=== PATIENT | female | born 1985 | race Caucasian/White ===

== ENCOUNTER 2016-11-28 18:05 | Emergency (ER) | payer OTHER ==
[2016-11-28 18:55] LABS: BASOPHILS 0.4 % (0.0-2.0); EOSINOPHILS 1.6 % (0.0-6.0); EOSINOPHILS# 0.2 X 10^3uL (0.0-0.4); LYMPHOCYTES# 2.3 X 10^3uL (0.8-3.8); MEAN PLATELET VOLUME 8.4 fL (7.4-10.4)
[2016-11-28] MEDS ORDERED: CLINDAMYCIN/D5W 50 ML IV ONE (18:57)
[2016-11-28 18:58] LABS: HEMATOCRIT 43.1 % (36.0-48.0); HEMOGLOBIN 14.8 g/dL (12.0-16.0); LYMPHOCYTES 23.6 % (20.0-40.0); MEAN CELL VOLUME 87.2 fL (80.0-100.0); MEAN CORPUS. HGB CONCENTRATION 34.3 g/dL (32.0-36.0); MEAN CORPUSCULAR HEMOGLOBIN 29.9 pg (29.0-35.0); MONOCYTES 6.2 % (2.0-10.0); MONOCYTES# 0.6 X 10^3uL (0.2-1.0); NEUTROPHILS 68.2 % (54.0-75.0); NEUTROPHILS# 6.8 X 10^3uL (2.6-6.7); RED BLOOD COUNT 4.95 X 10^6uL (4.20-6.10); RED CELL DISTRIBUTION WIDTH 13.5 % (11.5-14.5); WHITE BLOOD COUNT 9.9 X 10^3uL (3.9-10.7)
[2016-11-28] MEDS ORDERED: LEVOFLOXACIN/D5W 150 ML IV ONE (19:08)
[2016-11-28 19:13] LABS: C-REACTIVE PROTEIN 33.4 mg/L (<10.0)
[2016-11-28] MEDS ORDERED: BUPIVACAINE HCL/PF 0.5% 30 ML VIAL ONE (19:33)
[2016-11-28] MEDS ORDERED: LEVOFLOXACIN 250 MG TABLET ONE (19:33)
[2016-11-28] MEDS ORDERED: CLINDAMYCIN HCL 150 MG CAPSULE PO ONE (20:24)
--- NOTE | 2016-11-28 20:29 | ER PHYSICIAN DOCUMENTATION ---
Physician Documentation [facility] Name:Yolis Queen Age:30 yrs Sex:Female :1985 Arrival Date:11/28/2016 Time:18:05 Bed2 Private MD: Zac Rodríguez Disposition: 11/28 21:00 Chart complete. tl1 Disposition: 11/28/16 19:01 Discharged to Home/Self Care. Impression: Cellulitis of Hand. - Condition is Fair. - Discharge Instructions: CELLULITIS. - Prescriptions for Clindamycin HCl 150 mg Oral - take 3 capsule by ORAL route every 8 hours for 10 days; 90 capsule. Levaquin 750 mg Oral Tablet - take 1 tablet by ORAL route once daily for 10 days; 10 tablet. Ducor 5- 325 mg Oral Tablet - take 1 tablet by ORAL route every 6 hours As needed; 6 tablet. - Medical Reconciliation form form. - Follow up: Emergency Department; When: Tomorrow; Reason: Recheck today's complaints. - Problem is new. - Symptoms are unchanged. HPI: 18:19 This 30 yrs old Female presents to ER with complaints of Dog Bite. tl1 18:19 Onset: The symptom(s)/episode began/occurred suddenly, 3 day(s) ago. No care since tl1 then. Today she has noted progressive pain , swelling and redness of her left hand. Tetanus status is not up to date.. Historical: - Allergies: PENICILLINS; - Home Meds: 1. Vitamin Oral - PMHx: None; - PSHx: None; - Tetanus: unknown. - Ebola Screening: : Patient denies exposure to infectious person. Patient denies travel to an Ebola-affected area in the 21 days before illness onset. . - Immunization history: tetanus not UTD. - Social history: Smoking status: Patient uses tobacco products, current every day smoker. Patient uses alcohol on a daily basis. marijuana. ROS: 11/22 21:00 Skin: Positive for erythema, swelling. tl1 All other systems are negative. Exam: 21:00 Constitutional: This is a well developed, well nourished patient who is awake, alert, tl1 and in no acute distress. 21:00 Head/Face: Normocephalic, atraumatic. tl1 21:00 Cardiovascular: Rate: normal, Heart sounds: normal. 21:00 Respiratory: Respirations: normal. 21:00 Skin: cellulitis, that is moderate, on the dorsum of left hand and Left first web space, injury, bite(s), deep, linear, of the Left first web space. Vital Signs: 11/28 18:25 BP 134 / 60; Pulse 77; Pulse Ox 97% on R/A; Pain 2/10; st 20:28 BP 130 / 64; Pulse 74; Resp 12; Pulse Ox 97% on R/A; Pain 0/10; lb Laceration: 11/22 21:00 Wound Repair of 1cm ( 0.4in ) subcutaneous laceration to Left first web space and tl1 dorsum of left hand. Distal neuro/vascular/tendon intact. Anesthesia: Wound infiltrated with 3 mls of 0.5% marcaine. Wound prep: Simple cleansing with betadine, Wound irrigation with saline, Wound explored moderately. Skin closed with 1-0 Ethilon using Not closed: it was opened up and had begun to close and form an abscess. A small amonut of pus was expressed and irrigated out. This was left open and not packed.. Dressed with Bacitracin, 4x4's. Patient tolerated well. MDM: 21:00 Rabies Status: Rabies immunization is not indicated Rabies immune globulin is indicated tl1 for this patient. Data reviewed: vital signs, nurses notes, and as a result, I will discharge patient. Counseling: I had a detailed discussion with the patient and/or guardian regarding: the historical points, exam findings, and any diagnostic results supporting the discharge/admit diagnosis, radiology results, the need for outpatient follow up, for a referral to a specialist, a orthopedic surgeon, to return to the emergency department if symptoms worsen or persist or if there are any questions or concerns that arise at home. Response to treatment: the patient's symptoms have mildly improved after treatment, and as a result, I will discharge patient. Physician consultation: Dl Austin MD was called at 19:00, was contacted at 19:00, regarding patient's condition, outpatient follow-up, and will see patient in office, in 2-3 days. 11/28 19:01 Patient medically screened. tl1 11/28 18:59 Order name: CBC AUTO DIF, IVANNA/GLEN IF IND; Complete Time: 09:40 EDMS 11/30 09:38 Interpretation: WHITE BLOOD COUNT 9.9; HEMOGLOBIN 14.8; HEMATOCRIT 43.1; PLATELET COUNT tl1 313. 11/28 19:14 Order name: C-REACTIVE PROTEIN; Complete Time: 09:40 EDMS 11/30 09:39 Interpretation: Abnormal: C-REACTIVE PROTEIN 33.4. tl1 11/28 19:19 Order name: ERYTHROCYTE SEDIMENTATION RATE; Complete Time: 09:40 EDMS 11/30 09:40 Interpretation: Normal: ERYTHROCYTE SEDIMENTATION RATE 8. tl1 Dispensed Medications: 18:35 CANCELLED (Physician Discretion): Unasyn 3 grams IVPB once tl1 18:53 Drug: Clindamycin 900 mg; Route: IVPB; Site: right antecubital; lb 19:25 Follow up: IV Status: Completed infusion; IV Intake: 100ml lb 18:55 CANCELLED (Physician Discretion): Doxycycline 200 mg IVPB once tl1 19:25 Drug: Marcaine (0.5 %) 750 mg; Route: Infiltration; lb 19:37 Follow up: Response: No adverse reaction lb 19:25 Drug: Levaquin 750 mg; Route: PO; lb 20:29 Follow up: Response: No adverse reaction lb 20:26 Drug: Clindamycin 300 mg; Route: PO; lb 20:27 Follow up: Response: Pharmacy closed - take home med pack lb 20:26 Drug: HYDROcodone-acetaminophen (5mg/325 mg) 1-2 tabs 1 tabs; Route: PO; lb 20:27 Follow up: Response: Pharmacy closed - take home med pack lb Signatures: Dasha Haro RN RN st Leigh, Tom, MD MD tl1 Kira Mullins lb
--- NOTE | 2016-11-28 20:29 | ER NURSING DOCUMENTATION ---
Nurse's Notes [facility] Name:Yolis Queen Age:30 yrs Sex:Female :1985 Arrival Date:11/28/2016 Time:18:05 Bed2 Private MD: Diagnosis:Cellulitis of Hand Presentation: 11/28 18:10 Acuity: DAMARI 4 st 18:17 Presenting complaint: Patient states: pt states that her dog got startled three days st ago and turned his head fast catching his tooth on the pt left hand. today that hand is swollen and the cut is weeping clear fluid. Transition of care: Home. 18:17 Method Of Arrival: Private Vehicle st Triage Assessment: 18:24 Bite description: bite sustained to left hand is about 1 inch lac to the left hand. st hand is swollen. by a dog, animal information: vaccination(s) is current. General: Appears in no apparent distress, Behavior is cooperative. Pain: Complains of pain in left hand Pain currently is 2 out of 10 on a pain scale. Musculoskeletal: Swelling present in left hand. Historical: - Allergies: PENICILLINS; - Home Meds: 1. Vitamin Oral - PMHx: None; - PSHx: None; - Tetanus: unknown. - Ebola Screening: : Patient denies exposure to infectious person. Patient denies travel to an Ebola-affected area in the 21 days before illness onset. . - Immunization history: tetanus not UTD. - Social history: Smoking status: Patient uses tobacco products, current every day smoker. Patient uses alcohol on a daily basis. marijuana. Screenin:25 Infectious Disease Risk None. Abuse screen: Denies threats or abuse. Denies injuries st from another. pt feels safe at home. Nutritional screening: No deficits noted. Vital Signs: 18:25 BP 134 / 60; Pulse 77; Pulse Ox 97% on R/A; Pain 2/10; st 20:28 BP 130 / 64; Pulse 74; Resp 12; Pulse Ox 97% on R/A; Pain 0/10; lb ED Course: 18:07 Patient arrived in ED. ama 18:10 Two, Summer, RN is Primary Nurse. st 18:[address] 18:19 Zac Geiger MD is Attending Physician. tl1 18:26 Valuables Remains with patient Patient has correct armband on for positive st identification. Bed in low position. 18:36 Inserted peripheral IV: 20 gauge in right antecubital area and blood collected. st 18:38 Port Xray Completed. pm1 18:39 Removed ring from left ring finger. st 20:27 Wound care to puncture located on left hand was dressed with 4X4s, Kerlix. lb Administered Medications: 18:35 CANCELLED (Physician Discretion): Unasyn 3 grams IVPB once tl1 18:53 Drug: Clindamycin 900 mg; Route: IVPB; Site: right antecubital; lb 19:25 Follow up: IV Status: Completed infusion; IV Intake: 100ml lb 18:55 CANCELLED (Physician Discretion): Doxycycline 200 mg IVPB once tl1 19:25 Drug: Marcaine (0.5 %) 750 mg; Route: Infiltration; lb 19:37 Follow up: Response: No adverse reaction lb 19:25 Drug: Levaquin 750 mg; Route: PO; lb 20:29 Follow up: Response: No adverse reaction lb 20:26 Drug: Clindamycin 300 mg; Route: PO; lb 20:27 Follow up: Response: Pharmacy closed - take home med pack lb 20:26 Drug: HYDROcodone-acetaminophen (5mg/325 mg) 1-2 tabs 1 tabs; Route: PO; lb 20:27 Follow up: Response: Pharmacy closed - take home med pack lb Intake: 19:25 IV: 100ml; Total: 100ml. lb Outcome: 19:01 Discharge ordered by . tl1 20:28 Discharged to home ambulatory. lb 20:28 Condition: stable 20:28 Discharge Assessment: Patient awake, alert and oriented x 3. No cognitive and/or functional deficits noted. Patient verbalized understanding of disposition instructions. 20:28 Instructed on discharge instructions, follow up and referral plans. no drinking with medication, no driving heavy equipment. 20:28 IV D/Paul 20:28 Patient left the ED. lb Signatures: Dasha Haro, Breanna Gibbs RN pm1 Mio Johnson, Zac Lerner MD MD tl1 Kira Mullins lb
[2016-11-28] MEDS ORDERED: HYDROcodone/APAP PREPAC 5/325 1 TAB TABLET PO ONE (20:34)
--- NOTE | 2016-12-01 17:14 | RADIOLOGY REPORT ---
Three views of the left hand demonstrate no displaced fracture, subluxation or bony destructive change. The visualized joints appear unremarkable. IMPRESSION: No displaced injury is identified. If clinically indicated, further evaluation and/or follow-up may be of benefit. HERNANDEZD
== END 2016-11-28 20:29 | disposition home or self-care (01) ==
LOC: ER 18:05
DX: T79.8XXA Other early complications of trauma, initial encounter (principal); S61.452S Open bite of left hand, sequela; L02.414 Cutaneous abscess of left upper limb; L03.114 Cellulitis of left upper limb; W54.0XXS Bitten by dog, sequela
CPT/HCPCS: 12041; 85025; 85651; 86140; 96365; 99284; J1956

== ENCOUNTER 2016-11-29 11:25 | Emergency (ER) | payer OTHER ==
--- NOTE | 2016-11-29 12:03 | ER NURSING DOCUMENTATION ---
Nurse's Notes [facility] Name:Yolis Queen Age:30 yrs Sex:Female :1985 Arrival Date:11/29/2016 Time:11:25 Bed1 Private MD: Diagnosis:Cellulitis of Hand Presentation: 11/29 11:30 Transition of care: patient was not received from another setting of care. 11:30 Acuity: DAMARI 5 11:30 Method Of Arrival: Walk In 11:30 Presenting complaint: Patient states: recheck of left hand dog bite, symptoms improved; nf seen in ER yesterday and received IV antibiotics and antibiotic prescription x2 which she has filled, will see DrGrant tomorrow morning. 11:36 Notified ED Physician of patient's arrival and CC Swapnil Lorenzana notified. nf Triage Assessment: 11:30 General: Appears comfortable, well nourished, well groomed, Behavior is pleasant. Pain: nf Denies pain. 11:30 Derm: right had swollen, skin warm and pink, redness resolved from the markings of nf previous visit, no streaking, no fevers, no blood or drainage from wound, taking antibiotics. Historical: - Allergies: PENICILLINS; - Home Meds: 1. Vitamin Oral - PMHx: NONE; Cellulitis of Hand (November 28, 2016); - PSHx: NONE; - Tetanus: < 10 years. - Ebola Screening: : No symptoms or risks identified at this time. . - Immunization history: Flu Vaccine unknown. - Social history: Smoking status: unknown if patient ever smoked tobacco. Screenin:30 Infectious Disease Risk None. Abuse screen: Denies threats or abuse. Nutritional nf screening: No deficits noted. Vital Signs: 11:30 Temp 97.8; Pain 0/10; nf ED Course: : Patient arrived in ED. arc 11:30 Lesley Laws RN is Primary Nurse. nf 11:30 Triage completed. nf 11:30 Bed in low position Call Light in Reach Patient bandage removed. Family accompanied nf patient. 11:30 Valuables Remains with patient. Door closed. Noise minimized. Lights dimmed. Moved to private room. Verbal reassurance given. Pillow given. 11:33 Zac Geiger MD is Attending Physician. tl1 11:45 Wound care located on left hand was dressed with Kerlix. nf 12:00 Dl Austin MD is Referral Physician. tl1 Administered Medications: No medications were administered Outcome: 11:50 Discharged to home ambulatory, with family. nf 11:50 Condition: good 11:50 Discharge instructions given to patient, family, Instructed on discharge instructions, follow up and referral plans. medication usage, Demonstrated understanding of instructions, Prescriptions given X 2 antibiotic prescriptions were given yesterday 11:50 Recheck visit only Wound recheck nf 12:00 Discharge ordered by . tl1 Signatures: Lesley Laws, ANAY RN Zac Watts MD MD tl1 Eun Degroot, Reg Reg arc
--- NOTE | 2016-11-29 12:03 | ER PHYSICIAN DOCUMENTATION ---
Physician Documentation [facility] Name:Yolis Queen Age:30 yrs Sex:Female :1985 Arrival Date:11/29/2016 Time:11:25 Bed1 Private MD: Zac Rodríguez Disposition: 11/30 22:22 Chart complete. tl1 Disposition: 11/29/16 12:00 Discharged to Home/Self Care. Impression: Cellulitis of Hand. - Condition is Good. - Discharge Instructions: CELLULITIS. - Medical Reconciliation form form. - Follow up: Dl Austin MD; When: Tomorrow; Reason: Recheck today's complaints. - Problem is new. - Symptoms have improved. HPI: 11/29 11:34 This 30 yrs old Female presents to ER via Walk In with complaints of Recheck tl1 of dog bite cellulitis after first visit here yesterday. 11:40 She is feeling much better, with decreased swelling and pain in her left hand, with tl1 increasing movement and flexibility. Redness is clearly receeding.. Historical: - Allergies: PENICILLINS; - Home Meds: 1. Vitamin Oral - PMHx: NONE; Cellulitis of Hand (November 28, 2016); - PSHx: NONE; - Tetanus: < 10 years. - Ebola Screening: : No symptoms or risks identified at this time. . - Immunization history: Flu Vaccine unknown. - Social history: Smoking status: unknown if patient ever smoked tobacco. ROS: 11:40 MS/extremity: Positive for swelling, tenderness. tl1 Exam: 11:40 Constitutional: This is a well developed, well nourished patient who is awake, alert, tl1 and in no acute distress. 11:40 MS/ Extremity: Pulses equal, no cyanosis. Neurovascular intact. Full, normal range tl1 of motion. 11:40 Musculoskeletal/extremity: Extremities: grossly normal except: noted in the dorsum of left hand and Left first web space: The swelling redness and tenderness are all markedly improved from yesterday.. 11:40 Skin: Exam negative for acute changes. Vital Signs: 11:30 Temp 97.8; Pain 0/10; nf MDM: 11:33 Patient medically screened. tl1 12:00 Data reviewed: vital signs, nurses notes, old medical records, and as a result, I will tl1 discharge patient. Counseling: I had a detailed discussion with the patient and/or guardian regarding: the historical points, exam findings, and any diagnostic results supporting the discharge/admit diagnosis, the need for outpatient follow up, a orthopedic surgeon, tomorrow, as previously arranged, to return to the emergency department if symptoms worsen or persist or if there are any questions or concerns that arise at home. Dispensed Medications: No medications were administered Signatures: Lesley Laws RN RN nf Leigh, Tom, MD MD tl1
== END 2016-11-29 12:03 | disposition home or self-care (01) ==
LOC: ER 11:25
DX: Z48.00 Encounter for change or removal of nonsurgical wound dressing (principal); L03.114 Cellulitis of left upper limb; S61.452S Open bite of left hand, sequela
CPT/HCPCS: 99281

== ENCOUNTER 2017-01-01 11:25 | Emergency (ER) | payer OTHER ==
[2017-01-01 12:26] LABS: RH TYPE POSITIVE
[2017-01-01 12:56] LABS: HCG, QUANTITATIVE 68065 mIU/mL
--- NOTE | 2017-01-01 14:35 | ER PHYSICIAN DOCUMENTATION ---
Physician Documentation [facility] Name:Yolis Queen Age:31 yrs Sex:Female :1985 Arrival Date:01/01/2017 Time:11:25 Bed3 Private MD: Jamal Maharaj Disposition: 01/01/17 13:48 Discharged to Home/Self Care. Impression: Threatened Miscarriage. - Condition is Good. - Discharge Instructions: MISCARRIAGE Threatened - , Threatened. - Medical Reconciliation form form. - Follow up: Dominguez Rodriguez MD; When: 2 - 3 days; Reason: Continuance of care. - Problem is new. - Symptoms are resolved. HPI: 01/01 13:46 This 31 yrs old Female presents to ER via Private Vehicle with complaints of sc Vaginal Bleeding, + Preg <12wks. 13:46 The patient presents to the emergency department with vaginal bleeding. The estimated sc gestational age is 8 weeks. course: Leakage of Fluid: none appreciated, Ultrasound: the patient has not had an ultrasound. Associated signs and symptoms: The patient has no apparent associated signs or symptoms. 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 Vitamin Oral - PMHx: NONE; Cellulitis of Hand (November 28, 2016); - PSHx: NONE; - Ebola Screening: : Patient negative for fever greater than or equal to 101.5 degrees Fahrenheit, and additional compatible Ebola Virus Disease symptoms. Patient denies exposure to infectious person. Patient denies travel to an Ebola-affected area in the 21 days before illness onset. No symptoms or risks identified at this time. . - Social history: Smoking status: Patient states former smoker of tobacco. Patient uses alcohol on a daily basis. marijuana. ROS: 13:47 Constitutional: Negative for fever, chills, and weight loss. sc Eyes: Negative for injury, pain, redness, and discharge. Cardiovascular: Negative for chest pain, palpitations, and edema. Respiratory: Negative for shortness of breath, cough, wheezing, and pleuritic chest pain. Abdomen/GI: Negative for abdominal pain, nausea, vomiting, diarrhea, and constipation. Back: Negative for injury and pain. Skin: Negative for injury, rash, and discoloration. 13:47 Neuro: Negative for headache, weakness, numbness, tingling, and seizure. sc 13:47 : Positive for vaginal bleeding. Exam: Constitutional: This is a well developed, well nourished patient who is awake, alert, and in no acute distress. Head/Face: Normocephalic, atraumatic. Eyes: Pupils equal round and reactive to light, extra-ocular motions intact. Lids and lashes normal. Conjunctiva and sclera are non-icteric and not injected. Cornea within normal limits. Periorbital areas with no swelling, redness, or edema. Cardiovascular: Regular rate and rhythm with a normal S1 and S2. No gallops, murmurs, or rubs. Normal PMI, no JVD. No pulse deficits. Respiratory: Lungs have equal breath sounds bilaterally, clear to auscultation and percussion. No rales, rhonchi or wheezes noted. No increased work of breathing, no retractions or nasal flaring. 13:47 Abdomen/GI: Soft, non-tender, with normal bowel sounds. No distension or tympany. No sc guarding or rebound. No evidence of tenderness throughout. 13:47 : CVA tenderness, is absent, Gravid exam: Vital Signs: 11:35 BP 115 / 76; Pulse 80; Resp 24; Temp 98.6; Pulse Ox 99% on R/A; Weight 58.97 kg; Height rs 5 ft. 6 in. (167.64 cm); Pain 0/10; 13:05 BP 111 / 58; Pulse 71; Resp 18; Temp 98.4; Pulse Ox 98% on R/A; Pain 0/10; rs 13:57 Pulse Ox 96% ; rs 14:00 BP 114 / 55 (auto/); Pulse 67; Resp 18; Pulse Ox 96% on R/A; Pain 0/10; rs 11:35 Body Mass Index 20.98 (58.97 kg, 167.64 cm) rs MDM: 12:05 Patient medically screened. sc 13:47 Differential diagnosis: threatened Ab, ectopic . Data reviewed: vital signs, nd nurses notes, lab test result(s), and as a result, I will discharge patient. Counseling: I had a detailed discussion with the patient and/or guardian regarding: the historical points, exam findings, and any diagnostic results supporting the discharge/admit diagnosis, lab results, the need for outpatient follow up, for a referral to a specialist. 01/01 12:26 Order name: RH TYPE; Complete Time: 12:58 EDMS 01/01 12:58 Interpretation: Normal. sc 01/01 12:57 Order name: HCG, QUANTITATIVE EDMS Dispensed Medications: No medications were administered Signatures: Elsa Pisano RN RN rs Chew, Scott, MD MD nd
--- NOTE | 2017-01-01 14:35 | ER NURSING DOCUMENTATION ---
Nurse's Notes [facility] Name:Yolis Queen Age:31 yrs Sex:Female :1985 Arrival Date:01/01/2017 Time:11:25 Bed3 Private MD: Diagnosis:Threatened Miscarriage Presentation: 01/01 11:30 Presenting complaint: Patient states: 6 to 8 weeks and vaginal bleeding for 30 rs mijnutes. No cramps or clots. States she had some bleeding 2 weeks ago which she did have cramping with, that episode lasted one day and stopped spontaneously. That was a moderate amt with cramping. She saw Dr Rodriguez five days ago and was told everything looked good. Is not having any pain or cramping. She is G3, P1, AB 1. Transition of care: Home. 11:30 Acuity: DAMARI 3 rs 11:30 Method Of Arrival: Private Vehicle rs 11:49 Risk considerations:. rs Triage Assessment: 12:14 General: Appears comfortable, well developed, well nourished, well groomed, Behavior is rs anxious, cooperative. Pain: Denies pain. Neuro: No deficits noted. Level of Consciousness is awake, alert, Oriented to person, place, time, event. Cardiovascular: No deficits noted. Capillary refill < 3 seconds Pulses are 3+ in right radial artery Denies fatigue, lightheadedness, palpitations, syncope. Respiratory: No deficits noted. Airway is patent Respiratory effort is even, unlabored, Respiratory pattern is regular, symmetrical, Denies shortness of breath. GI: No deficits noted. Abdomen is flat, non- distended Bowel sounds present X 4 quads. Abd is soft and non tender. : No deficits noted. : Reports vaginal bleeding that is Stopped 15 min ago. She was up to the bathroom to void and there was no blood. Denies burning with urination, discharge, urinary frequency, urgency. Derm: No deficits noted. Skin is intact, Skin is pink, warm & dry. 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 Vitamin Oral - PMHx: NONE; Cellulitis of Hand (November 28, 2016); - PSHx: NONE; - Ebola Screening: : Patient negative for fever greater than or equal to 101.5 degrees Fahrenheit, and additional compatible Ebola Virus Disease symptoms. Patient denies exposure to infectious person. Patient denies travel to an Ebola-affected area in the 21 days before illness onset. No symptoms or risks identified at this time. . - Social history: Smoking status: Patient states former smoker of tobacco. Patient uses alcohol on a daily basis. marijuana. Screenin:36 Infectious Disease Risk None. Abuse screen: Denies threats or abuse. Nutritional rs screening: No deficits noted. Assessment: 12:35 Reassessment: Patient states feeling better. Patient states symptoms have improved. rs Vital Signs: 11:35 BP 115 / 76; Pulse 80; Resp 24; Temp 98.6; Pulse Ox 99% on R/A; Weight 58.97 kg; Height rs 5 ft. 6 in. (167.64 cm); Pain 0/10; 13:05 BP 111 / 58; Pulse 71; Resp 18; Temp 98.4; Pulse Ox 98% on R/A; Pain 0/10; rs 13:57 Pulse Ox 96% ; rs 14:00 BP 114 / 55 (auto/); Pulse 67; Resp 18; Pulse Ox 96% on R/A; Pain 0/10; rs 11:35 Body Mass Index 20.98 (58.97 kg, 167.64 cm) rs ED Course: 11:27 Patient arrived in ED. lm3 11:30 Elsa Pisano, RN is Primary Nurse. rs 11:42 Triage completed. rs 11:45 Notified ED Physician of patient's arrival and chief complaint. Dr. Degroot notified. Arm rs band placed on Bed in low position Call Light in Reach Gowned HOB Elevated Side rails up x1. Family notified patient in ED. Family accompanied patient. Labs ordered per protocol. Drawn by lab. 11:45 Valuables Remains with patient Patient has correct armband on for positive rs identification. Placed in gown. Bed in low position. Call light in reach. Side rails up X 1. Adult w/ patient. Door closed. Noise minimized. Lights dimmed. Verbal reassurance given. 12:05 Jamal Degroot MD is Attending Physician. sc 12:39 No apparent distress. Resting quietly. rs 13:48 Dominguez Rodriguez MD is Referral Physician. sc Administered Medications: No medications were administered Outcome: 13:48 Discharge ordered by MD. herndon 14:17 Discharged to home ambulatory. rs 14:17 Condition: improved 14:17 Discharge instructions given to patient, family, Encouraged to stop using etoh and marijuana. She states she drank every day, took drugs, and smoked heavily with her first daughter, and that "she is fine". Told that learning disabilities may show up later after she starts school (she is 2 y.o.). Instructed on discharge instructions, follow up and referral plans. 14:35 Patient left the ED. rs Signatures: Elsa Pisano RN RN Jamal Farah MD MD sc McKibbon-Moore, Emily 3
== END 2017-01-01 14:35 | disposition home or self-care (01) ==
LOC: ER 11:25
DX: O20.0 Threatened abortion (principal)
CPT/HCPCS: 36415; 84702; 86901; 99283

== ENCOUNTER 2017-01-19 20:19 | Emergency (ER) | payer OTHER ==
--- NOTE | 2017-01-19 21:13 | ER PHYSICIAN DOCUMENTATION ---
Physician Documentation [facility] Name:Yolis Queen Age:31 yrs Sex:Female :1985 Arrival Date:01/19/2017 Time:20:19 Bed3 Private MD:Dominguez Rodriguez EDMag Feroz Disposition: 01/19/17 21:07 Discharged to Home/Self Care. Impression: Threatened Miscarriage. - Condition is Good. - Discharge Instructions: MISCARRIAGE Threatened - , Threatened. - Medical Reconciliation form form. - Follow up: Dominguez Rodriguez MD; When: 1 - 2 days; Reason: Recheck today's complaints, Continuance of care. - Problem is new. - Symptoms have improved. - Notes: Drink plenty of fluids. Rest. Tylenol for pain. No intercourse until cleared by Dr. Camara. Follow up with Dr. Camara in 1 - 2 days. HPI: 01/19 20:25 This 31 yrs old Female presents to ER via Private Vehicle with complaints of cd Vaginal Bleeding, + Preg <12wks. 20:25 The patient presents to the emergency department with vaginal bleeding, that is cd moderate, with no clots. The estimated gestational age is 9.5 weeks. course: care: private OB physician, Dr. Camara, Ultrasound: the patient had an ultrasound, which was normal, Risk/complications: Threatened Ab twice during this . US after ED visits were both fine. The patient and her spouse had sexual intercourse this morning at 8:30 AM. The vaginal bleeding started this evening. She has not seen any blood clots or tissue. She does not have severe uterine cramping. Associated signs and symptoms: The patient has no apparent associated signs or symptoms, Pertinent negatives: abdominal pain, chest pain, dysuria, frequency, shortness of breath, vomiting. The patient has experienced similar episodes in the past, and the symptoms today are exactly the same. 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 Vitamin Oral - PMHx: Threatened Miscarriage (January 01, 2017); NONE; - PSHx: NONE; - Ebola Screening: : Patient negative for fever greater than or equal to 101.5 degrees Fahrenheit, and additional compatible Ebola Virus Disease symptoms. Patient denies exposure to infectious person. Patient denies travel to an Ebola-affected area in the 21 days before illness onset. No symptoms or risks identified at this time. . - Immunization history: Flu Vaccine >1 year. - Social history: Smoking status: Patient states former smoker of tobacco. Patient/guardian denies using alcohol, street drugs, IV drugs, marijuana. ROS: 20:35 Constitutional: Negative for chills, fever. cd 20:35 Abdomen/GI: Negative for abdominal pain, nausea, vomiting, diarrhea, abdominal cramps. 20:35 : Positive for vaginal bleeding, Negative for urinary symptoms, urinary frequency, pelvic pain, flank pain, burning with urination, foul smelling urine, vaginal discharge. 20:35 All other systems are negative. Exam: 20:45 ENT: Nares patent. No nasal discharge, no septal abnormalities noted. Tympanic cd membranes are normal and external auditory canals are clear. Oropharynx with no redness, swelling, or masses, exudates, or evidence of obstruction, uvula midline. Mucous membranes moist. Cardiovascular: Regular rate and rhythm with a normal S1 and S2. No gallops, murmurs, or rubs. Normal PMI, no JVD. No pulse deficits. Respiratory: Lungs have equal breath sounds bilaterally, clear to auscultation and percussion. No rales, rhonchi or wheezes noted. No increased work of breathing, no retractions or nasal flaring. Abdomen/GI: Soft, non-tender, with normal bowel sounds. No distension or tympany. No guarding or rebound. No evidence of tenderness throughout. 20:45 Back: No spinal tenderness. No costovertebral tenderness. Full range of motion. cd 20:45 Constitutional: The patient appears alert, awake, non-diaphoretic, non-toxic, well developed, well hydrated, well nourished, anxious. 20:45 : CVA tenderness, is absent, Gravid exam: heart tones: 145 beats/min. Vital Signs: 20:22 BP 128 / 74; Pulse 80; Resp 18; Temp 98.2; Pulse Ox 98% on R/A; mv Procedures: 20:45 Ultrasound: Pelvic, obstetrical ultrasound performed. Indications include: vaginal cd bleeding, Views obtained: transabdominal uterus sagittal, Findings: intrauterine present, cardiac activity with a heart rate of 145bpm. + fetus movement, Impressions: Patient has an intrauterine . MDM: 20:21 Patient medically screened. cd 20:45 Differential diagnosis: threatened Ab, 9 1/2 week IUP, Vaginal Bleeding after Sexual cd [place]. Data reviewed: vital signs, nurses notes, old medical records, and as a result, I will discharge patient. Data interpreted: Pulse oximetry: on room air is 98 %. Interpretation: normal. Counseling: I had a detailed discussion with the patient and/or guardian regarding: the historical points, exam findings, and any diagnostic results supporting the discharge/admit diagnosis, the need for outpatient follow up, for a recheck, for a referral to a specialist, an OB/Gyne specialist, to return to the emergency department if symptoms worsen or persist or if there are any questions or concerns that arise at home. Dispensed Medications: No medications were administered Signatures: Sujey Hahn RN RN ak1 Feroz Hathaway MD MD cd
--- NOTE | 2017-01-19 21:13 | ER NURSING DOCUMENTATION ---
Nurse's Notes [facility] Name:Yolis Queen Age:31 yrs Sex:Female :1985 Arrival Date:01/19/2017 Time:20:19 Bed3 Private MD:Dominguez Rodriguez Diagnosis:Threatened Miscarriage Presentation: 01/19 20:31 Presenting complaint: Patient states: she is 9 1/2 months . Pt. is having sc1 cramping and a brownish dark discharge. Pt. states she has had "bleeding" twice before with this and has had ultrasounds both of these times. Transition of care: Home. Notified ED Physician of patient's arrival and CC Dr. Hathaway notified. 20:31 Acuity: DAMARI 3 sc1 20:31 Method Of Arrival: Private Vehicle az1 Triage Assessment: 20:34 General: Appears distressed, well developed, well nourished, well groomed, Behavior is sc1 cooperative, crying. Pain: Complains of pain in suprapubic area Quality of pain is described as crampy. : Reports vaginal bleeding that is brown. MANAGER PROGRESSIVE CARE: 20:36 3, Full Term 1, Premature 0, 1, Living 1, LMP N/A - , sc1 Verified Historical: - Allergies: PENICILLINS; - Home Meds: 1. Vitamin Oral - PMHx: Threatened Miscarriage (January 01, 2017); NONE; - PSHx: NONE; - Ebola Screening: : Patient negative for fever greater than or equal to 101.5 degrees Fahrenheit, and additional compatible Ebola Virus Disease symptoms. Patient denies exposure to infectious person. Patient denies travel to an Ebola-affected area in the 21 days before illness onset. No symptoms or risks identified at this time. . - Immunization history: Flu Vaccine >1 year. - Social history: Smoking status: Patient states former smoker of tobacco. Patient/guardian denies using alcohol, street drugs, IV drugs, marijuana. Screenin:35 Infectious Disease Risk None. Abuse screen: Denies threats or abuse. Nutritional sc1 screening: No deficits noted. Vital Signs: 20:22 BP 128 / 74; Pulse 80; Resp 18; Temp 98.2; Pulse Ox 98% on R/A; mv ED Course: 20:20 Patient arrived in ED. em2 20:20 Dominguez Rodriguez MD is Private Physician. em2 20:21 Feroz Hathaway MD is Attending Physician. cd 20:31 Sujey Hahn RN is Primary Nurse. sc1 20:33 Triage completed. sc1 20:35 Notified ED Physician of patient's arrival and chief complaint. Dr. Hathaway notified. sc1 Allergy Band Placed Arm band placed on Bed in low position Call Light in Reach Gowned HOB Elevated Side rails up x2. 21:06 Dominguez Rodriguez MD is Referral Physician. cd Administered Medications: No medications were administered Outcome: 21:07 Discharge ordered by . cd 21:11 Discharged to home ambulatory. sc1 21:11 Condition: stable 21:11 Discharge instructions given to patient, Instructed on discharge instructions, follow up and referral plans. Demonstrated understanding of instructions. 21:12 Patient left the ED. sc1 Signatures: Sujey Hahn RN RN sc1 Feroz Hathaway MD MD cd Vanian-reg, Delfina-reg em2 festus chavez
== END 2017-01-19 21:13 | disposition home or self-care (01) ==
LOC: ER 20:19
DX: O20.0 Threatened abortion (principal)
CPT/HCPCS: 99281

== ENCOUNTER 2017-02-17 21:19 | Emergency (ER) | payer OTHER ==
--- NOTE | 2017-02-17 21:51 | ER NURSING DOCUMENTATION ---
Nurse's Notes [facility] Name:Yolis Queen Age:31 yrs Sex:Female :1985 Arrival Date:02/17/2017 Time:21:19 Bed3 Private MD:Dominguez Rodriguez Diagnosis:Intrauterine (IUP);Discomfort of Presentation: 02/17 21:22 Acuity: DAMARI 3 sc1 21:22 Presenting complaint: Patient states: low abdominal pain after having sex today. sc1 Transition of care: Home. Notified ED Physician of Dr. Hathaway notified. 21:22 Method Of Arrival: Private Vehicle fl1 Triage Assessment: 21:40 General: Appears uncomfortable, well developed, well nourished, well groomed, Behavior sc1 is cooperative, pleasant. Pain: Complains of pain in suprapubic area. GI: No deficits noted. Historical: - Allergies: PENICILLINS; - Home Meds: 1. Vitamin Oral - Ebola Screening: : Patient negative for fever greater than or equal to 101.5 degrees Fahrenheit, and additional compatible Ebola Virus Disease symptoms. Patient denies exposure to infectious person. Patient denies travel to an Ebola-affected area in the 21 days before illness onset. No symptoms or risks identified at this time. . - Immunization history: Flu Vaccine < 1 year. - Social history: Smoking status: Patient states was never smoker of tobacco. Patient/guardian denies using alcohol, street drugs, IV drugs, marijuana. Screenin:43 Infectious Disease Risk None. Abuse screen: Denies threats or abuse. Nutritional sc1 screening: No deficits noted. Vital Signs: 21:42 BP 106 / 62; Pulse 68; Resp 16; Temp 98.3; Pulse Ox 95% on R/A; fl1 Vitals: 21:42 Heart Tones 145. fl1 ED Course: 21:21 Patient arrived in ED. em2 21:21 Dominguez Rodriguez MD is Private Physician. em2 21:22 Sujey Hahn, ANAY is Primary Nurse. sc1 21:23 Triage completed. sc1 21:38 Feroz Hathaway MD is Attending Physician. cd 21:38 Dominguez Rodriguez MD is Referral Physician. cd 21:43 Notified ED Physician of patient's arrival and chief complaint. Dr. Hathaway notified. fl1 Allergy Band Placed Arm band placed on Bed in low position Call Light in Reach Gowned HOB Elevated. 21:43 Urine collected. Clean catch specimen. em1 Administered Medications: No medications were administered Point of Care Testing: Urine Dip: 21:43 pH: 8.5; ; Specific [place]: 1.020; Ketones: Negative; Glucose: Negative; Protein: em1 Trace; Leukocytes: Negative; Nitrite: Negative ; Blood: Negative; Bilirubin: Negative ; Urobilinogen: Normal Outcome: 21:39 Discharge ordered by . juliet 21:50 Patient left the ED. [facility] 21:50 Discharged to home ambulatory. [facility] 21:50 Condition: stable 21:50 Discharge instructions given to patient, Instructed on discharge instructions, follow up and referral plans. Demonstrated understanding of instructions. Signatures: Sujey Hahn RN RN fl1 Feroz Hathaway MD MD cd Mein[employer]-tech, Delfina-tech em1 [place]-reg, Delfina-reg em2
--- NOTE | 2017-02-17 21:51 | ER PHYSICIAN DOCUMENTATION ---
Physician Documentation [facility] Name:Yolis Queen Age:31 yrs Sex:Female :1985 Arrival Date:02/17/2017 Time:21:19 Bed3 Private MD:Dominguez Rodriguez ED, Chris Disposition: 02/17/17 21:39 Discharged to Home/Self Care. Impression: Intrauterine (IUP), Discomfort of . - Condition is Good. - Discharge Instructions: Abdominal Pain - ABDOMINAL PAIN, Early . - Medical Reconciliation form form. - Follow up: Dominguez Rodriguez MD; When: 1 week; Reason: Recheck today's complaints, Continuance of care. - Problem is new. - Symptoms are resolved. HPI: 02/17 21:21 This 31 yrs old Female presents to ER via Private Vehicle with complaints of cd Abdominal Pain. 21:21 The patient presents with abdominal pain in the left lower quadrant. Onset: The cd symptoms/episode began/occurred acutely, just prior to arrival, after having intercourse today with . The patient is 14 weeks . She denies passing tissue, vaginal bleeding, discharge, UTI symptoms, etc. She is getting care from Dr. Flores. Associated signs and symptoms: none. Severity of pain: At its worst the pain was very mild in the emergency department the pain has resolved. Historical: - Allergies: PENICILLINS; - Home Meds: 1. Vitamin Oral - Ebola Screening: : Patient negative for fever greater than or equal to 101.5 degrees Fahrenheit, and additional compatible Ebola Virus Disease symptoms. Patient denies exposure to infectious person. Patient denies travel to an Ebola-affected area in the 21 days before illness onset. No symptoms or risks identified at this time. . - Immunization history: Flu Vaccine < 1 year. - Social history: Smoking status: Patient states was never smoker of tobacco. Patient/guardian denies using alcohol, street drugs, IV drugs, marijuana. ROS: 21:40 ENT: Negative for injury, pain, epistaxis and discharge. cd Cardiovascular: Negative for chest pain, palpitations, edema and pleuritic pain. Respiratory: Negative for shortness of breath, dyspnea on exertion, cough, sputum production, wheezing, hemoptysis and pleuritic chest pain. Back: Negative for injury, pain or muscle spasms. : Negative for injury, bleeding, discharge, dysuria, frequency, urgency and swelling. MS/Extremity: Negative for injury, deformity, edema, calf tenderness, pain or coldness. 21:40 Skin: Negative for injury, rash, itching and discoloration. cd 21:40 Constitutional: Negative for chills, fever, poor PO intake. 21:40 Abdomen/GI: Positive for abdominal pain, of the left lower quadrant, Negative for nausea, vomiting, diarrhea, constipation, abdominal distension, anorexia, hematemesis, black/tarry stool, rectal bleeding. Exam: ENT: Nares patent. No nasal discharge, no septal abnormalities noted. Tympanic membranes are normal and external auditory canals are clear. Oropharynx with no redness, swelling, or masses, exudates, or evidence of obstruction, uvula midline. Mucous membranes moist. Cardiovascular: Regular rate and rhythm with a normal S1 and S2. No gallops, murmurs, or rubs. Normal PMI, no JVD. No pulse deficits. 21:40 Respiratory: Lungs have equal breath sounds bilaterally, clear to auscultation and cd percussion. No rales, rhonchi or wheezes noted. No increased work of breathing, no retractions or nasal flaring. 21:40 Constitutional: The patient appears alert, awake, non-diaphoretic, non-toxic, well developed, well hydrated, well nourished, anxious, in obvious distress, mildly distressed. 21:40 Abdomen/GI: Palpation: abdomen is soft and non-tender, rebound tenderness, is not appreciated, voluntary guarding, is not appreciated, involuntary guarding, is not appreciated, no appreciated organomegaly, Indicators: McBurney's point is not tender, Kaiser's sign is negative. 21:40 Back: CVA tenderness, is absent. 21:40 : Gravid exam: Fundal height: consistent with gestational age, is 14 cm, Rectal exam: is not applicable. Vital Signs: 21:42 BP 106 / 62; Pulse 68; Resp 16; Temp 98.3; Pulse Ox 95% on R/A; sc1 Procedures: 21:40 Ultrasound: Pelvic, obstetrical ultrasound performed. Indications include: abdominal cd pain, Views obtained: transabdominal uterus sagittal, transabdominal uterus transverse, Findings: intrauterine present, Impressions: Patient has an intrauterine . MDM: 21:38 Patient medically screened. cd 21:40 Data reviewed: vital signs, nurses notes, old medical records, and as a result, I will cd *Transfer Patient. Counseling: I had a detailed discussion with the patient and/or guardian regarding: the historical points, exam findings, and any diagnostic results supporting the discharge/admit diagnosis, lab results, the need for outpatient follow up, for a recheck, with the patient's primary care provider, to return to the emergency department if symptoms worsen or persist or if there are any questions or concerns that arise at home. Dispensed Medications: No medications were administered Point of Care Testing: Urine Dip: 21:43 pH: 8.5; ; Specific [place]: 1.020; Ketones: Negative; Glucose: Negative; Protein: em1 Trace; Leukocytes: Negative; Nitrite: Negative ; Blood: Negative; Bilirubin: Negative ; Urobilinogen: Normal Signatures: Sujey Hahn RN RN sc1 Feroz Hathaway MD MD cd
== END 2017-02-17 21:51 | disposition home or self-care (01) ==
LOC: ER 21:19
DX: O99.89 Other specified diseases and conditions complicating pregnancy, childbirth and the puerperium (principal); R10.32 Left lower quadrant pain
CPT/HCPCS: 99283

== ENCOUNTER 2017-03-06 23:13 | Emergency (ER) | payer OTHER ==
[2017-03-06] MEDS ORDERED: MAG-AL PLUS XS SUSP 30 ML UDC ONE (23:56)
[2017-03-06] MEDS ORDERED: LIDOCAINE VISCOUS 2% 15 ML UDC ONE (23:57)
[2017-03-07 00:16] LABS: BASOPHILS 0.4 % (0.0-2.0); EOSINOPHILS 1.6 % (0.0-6.0); EOSINOPHILS# 0.1 X 10^3uL (0.0-0.4); HEMOGLOBIN 13.4 g/dL (12.0-16.0); LYMPHOCYTES 17.6 % (20.0-40.0); LYMPHOCYTES# 1.6 X 10^3uL (0.8-3.8); MEAN CELL VOLUME 86.4 fL (80.0-100.0); MEAN CORPUS. HGB CONCENTRATION 34.4 g/dL (32.0-36.0); MEAN CORPUSCULAR HEMOGLOBIN 29.7 pg (29.0-35.0); MEAN PLATELET VOLUME 8.1 fL (7.4-10.4); MONOCYTES# 0.5 X 10^3uL (0.2-1.0); NEUTROPHILS# 6.9 X 10^3uL (2.6-6.7); PLATELET COUNT 288 X 10^3uL (130-440); RED BLOOD COUNT 4.51 X 10^6uL (4.20-6.10); RED CELL DISTRIBUTION WIDTH 12.7 % (11.5-14.5); WHITE BLOOD COUNT 9.1 X 10^3uL (3.9-10.7)
[2017-03-07 00:28] LABS: ALBUMIN 3.7 g/dL (3.5-5.0); ALKALINE PHOSPHATASE 41 U/L (38-126); ALT 25 U/L (9-52); AST 21 U/L (14-36); BILIRUBIN, TOTAL 0.3 mg/dL (0.2-1.3); BLOOD UREA NITROGEN 10 mg/dL (7-17); CALCIUM 9.4 mg/dL (8.4-10.2); CHLORIDE 108 mmol/L (98-107); EST GLOMERULAR FILTRATION RATE > 60 mL/min; GLUCOSE 89 mg/dL (70-100); LIPASE 106 U/L (23-300); NEUTROPHILS 75.4 % (54.0-75.0); POTASSIUM 3.5 mmol/L (3.5-5.1); SODIUM 137 mmol/L (137-145); TOTAL PROTEIN 6.8 g/dL (6.3-8.2)
--- NOTE | 2017-03-07 01:27 | ER NURSING DOCUMENTATION ---
Nurse's Notes [facility] Name:Yolis Queen Age:31 yrs Sex:Female :1985 Arrival Date:03/06/2017 Time:23:12 Bed3 Private MD: Diagnosis:Abdominal Pain, Epigastric Presentation: 03/06 23:16 Presenting complaint: Patient states: she has upper abdominal pain. pt states she is 15 bw2 weeks preg. pt denies cramping or spotting. pt states that she is nauseated but that is her baseline. Transition of care: patient was not received from another setting of care. 23:16 Acuity: DAMARI 3 bw2 23:16 Method Of Arrival: Wheelchair bw2 Triage Assessment: 23:19 General: Appears in no apparent distress, uncomfortable, Behavior is anxious, bw2 appropriate for age. Pain: Complains of pain in epigastric area. GI: Reports Pain is 10 out of 10 on a pain scale. 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 - Ebola Screening: : Patient negative for fever greater than or equal to 101.5 degrees Fahrenheit, and additional compatible Ebola Virus Disease symptoms. Patient denies exposure to infectious person. Patient denies travel to an Ebola-affected area in the 21 days before illness onset. No symptoms or risks identified at this time. . - Immunization history: Flu Vaccine None. - Social history: Smoking status: Patient states was never smoker of tobacco. Screenin:21 Infectious Disease Risk None. Abuse screen: Denies threats or abuse. Nutritional bw2 screening: No deficits noted. Assessment: 23:21 See Triage Assessment done by same RN. bw2 03/07 00:44 GI: Bowel sounds present X 4 quads. Abdomen is tender to palpation in epigastric area. bw2 Vital Signs: 03/06 23:19 BP 145 / 77; Pulse 80; Resp 18 S; Temp 98(O); Pulse Ox 97% ; Weight 63.5 kg; Pain 10/10;bw2 03/07 00:52 BP 124 / 60; Pulse 90; Resp 18 S; Temp 98; Pulse Ox 96% ; bw2 ED Course: 03/06 23:12 Patient arrived in ED. em3 23:14 Todd Kraft MD is Attending Physician. jm 23:16 Eleonora Rene is Primary Nurse. bw2 23:18 Triage completed. bw2 23:21 Valuables Remains with patient Placed in gown. Bed in low position. bw2 03/07 00:42 pt refused pain medications at this time. will continue to monitor pain. bw2 00:43 Inserted peripheral IV: 20 gauge in right antecubital area. bw2 Administered Medications: 03/06 23:44 Drug: GI Cocktail w/o Donnatol - (Maalox Suspension 30 ml, Lidocaine Liquid 2 % 15 ml); bw2 Route: PO; 03/07 00:43 Follow up: Response: No change in condition bw2 01:21 Drug: Dilaudid 0.5 mg; Route: IVP; Site: right antecubital; bw2 01:23 Follow up: Response: No adverse reaction bw2 01:21 Drug: Zofran 8 mg; Route: IVP; Infused Over: 2 mins; Site: right antecubital; bw2 01:23 Follow up: Response: No adverse reaction bw2 Point of Care Testing: Urine Dip: 00:11 pH: 6.5; ; Specific [place]: 1.010; Ketones: Negative; Glucose: Negative; Protein: bw2 Negative; Leukocytes: Negative; Nitrite: Negative ; Blood: Negative; Bilirubin: Negative ; Urobilinogen: Normal Outcome: 00:46 Transferred: Patient will be transferred to: [facility]. Facility bw2 Acceptance Time: March 07, 2017 at 00:46 Patient's face sheet was faxed to accepting facility. Face Sheet included patient's name, address, age, gender, contact information and insurance information. Patient will be transported by: [facility] ground. Nurse and Physician Charting and Notes were sent to Accepting Facility. All tests and/or procedures with results, if applicable, were sent to accepting facility. 00:51 Transferred: Patient will be transferred to: [facility]. bw2 00:59 Transferred: Report called to: [facility] ED charge nurse bw2 01:00 Condition: good bw2 01:00 Discharge instructions given to patient, significant other, Instructed on need for transfer Demonstrated understanding of instructions. 01:04 ER care complete, transfer ordered by . jm 01:23 Report given to ED charge nurse updated that the pt was given 0.5 dilaudid and 8mg bw2 zofran 01:27 Patient left the ED. bw2 Signatures: Todd Kraft MD MD jm Meiklejohn, Eric em3 Eleonora Rene bw2
--- NOTE | 2017-03-07 01:27 | ER PHYSICIAN DOCUMENTATION ---
Physician Documentation [facility] Name:Yolis Queen Age:31 yrs Sex:Female :1985 Arrival Date:03/06/2017 Time:23:12 Bed3 Private MD: Todd Mantilla Disposition: 03/07/17 01:04 Transfer ordered to [facility]. Diagnosis is Abdominal Pain, Epigastric. - Reason for transfer: Specialty. - Accepting physician is Dr. Gan. - Condition is Undetermined. - Problem is new. - Symptoms are unchanged. COBRA Form completed? Transfer - Mode of Transportation Ambulance HPI: 03/07 00:53 This 31 yrs old Female presents to ER via Wheelchair with complaints of jm Abdominal Pain. 00:53 The patient presents with abdominal pain in the epigastric area. Onset: The jm symptoms/episode began/occurred 1 hour(s) ago. The symptoms do not radiate. Associated signs and symptoms: Pertinent negatives: nausea. The symptoms are described as sharp. Modifying factors: the symptoms are aggravated by nothing. Severity of pain: in the emergency department the pain is unchanged. The patient has not experienced similar symptoms in the past. The patient has not recently seen a physician. 31 yo F 15 wks by US here for epigastric pain that started suddenly an hour ago.. 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 - Ebola Screening: : Patient negative for fever greater than or equal to 101.5 degrees Fahrenheit, and additional compatible Ebola Virus Disease symptoms. Patient denies exposure to infectious person. Patient denies travel to an Ebola-affected area in the 21 days before illness onset. No symptoms or risks identified at this time. . - Immunization history: Flu Vaccine None. - Social history: Smoking status: Patient states was never smoker of tobacco. ROS: 03/07 01:00 Constitutional: Negative for chills, fatigue, fever. jm ENT: Negative for sinus pain. Abdomen/GI: Positive for abdominal pain, Negative for nausea, vomiting, diarrhea, constipation. : Negative for urinary symptoms, urinary frequency, hematuria, pelvic pain, flank pain, burning with urination. All other systems are negative. Exam: 01:00 Constitutional: The patient appears alert, awake, in obvious distress, mildly jm distressed. 01:00 Eyes: Periorbital structures: appear normal, Conjunctiva: normal. 01:00 Neck: Thyroid: appears normal, Trachea: is midline with no obvious abnormalities. 01:00 Cardiovascular: Rate: normal, Rhythm: regular. 01:00 Respiratory: Respirations: normal, Breath sounds: are normal. 01:00 Abdomen/GI: Bowel sounds: normal, Palpation: moderate abdominal tenderness, in the epigastric area. 01:00 Back: normal spinal alignment noted, CVA tenderness, is absent. 01:00 : CVA tenderness, is absent, Bladder: is normal. 01:00 Musculoskeletal/extremity: Sensation intact. Weight bearing: able to fully bear weight. 01:00 Neuro: Mentation: is normal, Memory: is normal. 01:00 Psych: Behavior/mood is pleasant, cooperative, Affect is calm. Vital Signs: 03/06 23:19 BP 145 / 77; Pulse 80; Resp 18 S; Temp 98(O); Pulse Ox 97% ; Weight 63.5 kg; Pain 10/10;bw2 03/07 00:52 BP 124 / 60; Pulse 90; Resp 18 S; Temp 98; Pulse Ox 96% ; bw2 MDM: 03/06 23:13 Patient medically screened. 03/07 01:01 Differential diagnosis: cholecystitis, Cholelithiasis, non-specific abd pain, jm pancreatitis, Peptic Ulcer Disease, Perf. Duodenal Ulcer, Perf. Gastric Ulcer. Data reviewed: vital signs, nurses notes, lab test result(s), and as a result, I will *Transfer Patient. Counseling: I had a detailed discussion with the patient and/or guardian regarding: the historical points, exam findings, and any diagnostic results supporting the discharge/admit diagnosis, lab results, the need to transfer to another facility, [facility] does not immediately have the required specialist. Physician consultation: Dr. Gan was called at 00:50, was contacted at 00:50, regarding need to come to ED to see patient. ED course: Pt 15 wks w a baby girl here w abd pain. Labs normal. GI cocktail did not work. I suspect ulcer, but pt need a formal RUQ US which we do not have in EP. Pt has chosen to go to [facility] by ambulance to get US. I spoke w ED attending, Dr. Gan, who agrees w transfer and will order US. . 07 00:28 Order name: CBC AUTO DIF, MDIF/RMOR IF IND; Complete Time: 00:31 EDMS 03/07 00:29 Order name: BASIC METABOLIC PANEL; Complete Time: 00:31 EDMS 07 00:29 Order name: HEPATIC PANEL; Complete Time: 00:31 EDMS 07 00:29 Order name: LIPASE; Complete Time: 00:31 EDMS Dispensed Medications: 03/06 23:44 Drug: GI Cocktail w/o Donnatol - (Maalox Suspension 30 ml, Lidocaine Liquid 2 % 15 ml); bw2 Route: PO; 03/07 00:43 Follow up: Response: No change in condition bw2 01:21 Drug: Dilaudid 0.5 mg; Route: IVP; Site: right antecubital; bw2 01:23 Follow up: Response: No adverse reaction bw2 01:21 Drug: Zofran 8 mg; Route: IVP; Infused Over: 2 mins; Site: right antecubital; bw2 01:23 Follow up: Response: No adverse reaction bw2 Point of Care Testing: Urine Dip: 00:11 pH: 6.5; ; Specific [place]: 1.010; Ketones: Negative; Glucose: Negative; Protein: bw2 Negative; Leukocytes: Negative; Nitrite: Negative ; Blood: Negative; Bilirubin: Negative ; Urobilinogen: Normal Signatures: Todd Kraft MD MD jm Wisely, Beth bw2
[2017-03-07] MEDS ORDERED: ONDANSETRON HCL 4 MG/2 ML VIAL ONE (01:33)
== END 2017-03-07 01:27 | disposition short-term general hospital (02) ==
LOC: ER 23:13
DX: O99.89 Other specified diseases and conditions complicating pregnancy, childbirth and the puerperium (principal); R10.13 Epigastric pain; Z74.3 Need for continuous supervision
CPT/HCPCS: 36415; 80048; 80076; 83690; 85025; 96374; 96375; 99285; A0425; A0427; J1170; J2405